=== PATIENT | male | born 1985 | race American Indian/Alaskan Native ===

== ENCOUNTER 2016-12-20 16:29 | Emergency (ER) | payer SELFPAY ==
[2016-12-20] MEDS ORDERED: FLEXERIL PO ONE (21:15)
[2016-12-20] MEDS ORDERED: MOTRIN PO ONE (21:15)
[2016-12-20 21:20] VITALS: BP 125/80
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
--- NOTE | 2016-12-21 09:34 | XRay Report ---
ROUTINE CHEST, TWO VIEWS: HISTORY: chest pain. The trachea, heart, mediastinal contour, lung fall and bony thorax are unremarkable. IMPRESSION: Unremarkable chest x-ray.
--- NOTE | 2016-12-21 09:34 | XRay Report ---
LEFT SHOULDER, 3 views: History: Left shoulder pain. Routine views demonstrate normal bony and soft tissue structures with normal joint alignment of the shoulder. IMPRESSION: Normal study.
== END 2016-12-20 23:00 | disposition home or self-care (01) ==
LOC: ED 16:29
DX: M25.512 Pain in left shoulder (principal); M62.830 Muscle spasm of back; R07.89 Other chest pain; F17.200 Nicotine dependence, unspecified, uncomplicated; V49.59XA Passenger injured in collision with other motor vehicles in traffic accident, initial encounter; W22.10XA Striking against or struck by unspecified automobile airbag, initial encounter; Y93.89 Activity, other specified; Y99.8 Other external cause status; Y92.89 Other specified places as the place of occurrence of the external cause
CPT/HCPCS: 71020